=== PATIENT | female | born 1960 | race Caucasian/White ===

== ENCOUNTER 2020-03-27 07:14 | Emergency (ER) | payer OTHER ==
--- NOTE | 2020-03-27 08:09 | ER ---
Nurse's Notes [facility] Name: Joyce Richter Age: 59 yrs Sex: Female : 1960 Arrival Date: 03/27/2020 Time: 07:17 Bed 7 Private MD: Magen Hoffmann B Diagnosis: Low back pain;Essential (primary) hypertension Presentation: 03/27 07:40 Chief complaint: Patient states: Low back pain that has been going on for months. No ss known injury. Pt reports that she had blood work and a urine test but everything came back negative. Coronavirus screen: Client denies travel out of the [place] in the last 14 days. At this time, the client does not indicate any symptoms associated with coronavirus-19. Ebola Screen: Patient denies exposure to infectious person. Patient denies travel to an Ebola-affected area in the 21 days before illness onset. Initial Sepsis Screen: Does the patient meet any 2 criteria? No. Patient's initial sepsis screen is negative. Does the patient have a suspected source of infection? No. Patient's initial sepsis screen is negative. Risk Assessment: Do you want to hurt yourself or someone else? Patient reports no desire to harm self or others. Onset of symptoms is unknown. 07:40 Method Of Arrival: Ambulatory ss 07:40 Acuity: NAOMY 4 ss Historical: - Allergies: 07:43 No Known Allergies; ss - Immunization history:: Adult Immunizations unknown. - Social history:: Smoking status: Patient reports the use of cigarette tobacco products, smokes one-half pack cigarettes per day. Screenin:05 Abuse screen: Denies threats or abuse. Denies injuries from another. Nutritional ph screening: No deficits noted. Tuberculosis screening: No symptoms or risk factors identified. Fall Risk None identified. Assessment: 09:05 General: Appears in no apparent distress. uncomfortable, well groomed, Behavior is ph calm, cooperative, appropriate for age. Pain: Complains of pain in low back area Pain does not radiate. Neuro: Level of Consciousness is awake, alert, obeys commands, Oriented to person, place, time, situation. Cardiovascular: Capillary refill < 3 seconds in bilateral fingers Patient's skin is warm and dry. Respiratory: Airway is patent Respiratory effort is even, unlabored, Respiratory pattern is regular, symmetrical. Derm: Skin is intact, is healthy with good turgor, Skin is pink, warm \T\ dry. Vital Signs: 07:40 BP 162 / 102; Pulse 60; Resp 16; Temp 98.2(O); Pulse Ox 98% on R/A; Weight 86.18 kg; ss Height 5 ft. 6 in. (167.64 cm); Pain 8/10; 09:05 BP 157 / 89; Pulse 62; Resp 18; Temp 98.0; Pulse Ox 99% on R/A; ph 07:40 Body Mass Index 30.67 (86.18 kg, 167.64 cm) ED Course: 07:17 Patient arrived in ED. mr 07:17 Magen Hoffmann MD is Private Physician. mr 07:42 Triage completed. ss 07:43 Arm band placed on right wrist. ss 07:44 Cecile Priest [facility]-C [facility]. snw 07:44 Won Hartmann MD is Attending Physician. snw 08:08 Magen Hoffmann MD is Referral Physician. snw 09:04 Wendy Pierre RN is Primary Nurse. ph 09:05 Patient has correct armband on for positive identification. Bed in low position. Call ph light in reach. Side rails up X 1. Pulse ox on. NIBP on. Door closed. Noise minimized. Warm blanket given. 09:06 No provider procedures requiring assistance completed. Patient did not have IV access ph during this emergency room visit. Administered Medications: 08:45 Drug: Decadron 10 mg Route: IM; Site: left deltoid; ph 09:04 Follow up: Response: No adverse reaction ph 08:45 Drug: Flexeril 10 mg Route: PO; ph 09:04 Follow up: Response: No adverse reaction ph Outcome: 08:09 Discharge ordered by . snw 09:06 Discharged to home ambulatory. ph 09:06 Condition: good 09:06 Discharge instructions given to patient, Instructed on discharge instructions, follow up and referral plans. medication usage, Demonstrated understanding of instructions, follow-up care, medications, Prescriptions given X 3. 09:06 Patient left the ED. ph Signatures: Cecile Priest FNP-C STOVE MECHANIC-Qian Yodit Marinelli Che Pablo, JENI RN Wendy Pierre RN RN ph
--- NOTE | 2020-03-27 08:09 | EDPHYS ---
Physician Documentation [facility] Name: Joyce Richter Age: 59 yrs Sex: Female : 1960 Arrival Date: 03/27/2020 Time: 07:17 Bed 7 Private MD: Magen Hoffmann B ED Physician Won Hartmann HPI: 03/27 08:49 This 59 yrs old Female presents to ER via Ambulatory with complaints of Back snw Pain. 08:49 The patient presents with pain that is acute, with no known mechanism of injury. The snw symptoms are located in the low back. Onset: The symptoms/episode began/occurred 1 month(s) ago, and became worse and became persistent. The pain does not radiate. Associated signs and symptoms: Pertinent positives: none. The problem was sustained from unknown cause. Severity of symptoms: At their worst the symptoms were moderate. The patient has not experienced similar symptoms in the past. Dr. Hoffmann sent pt for urine analysis (normal) and labs. Pt rec'd change in rx for vitamins. Will f/u post acute treatment for current back pain. Historical: - Allergies: 07:43 No Known Allergies; ss - Immunization history:: Adult Immunizations unknown. - Social history:: Smoking status: Patient reports the use of cigarette tobacco products, smokes one-half pack cigarettes per day. ROS: 08:49 Constitutional: Negative for fever, chills, and weight loss, Eyes: Negative for injury, snw pain, redness, and discharge, ENT: Negative for injury, pain, and discharge, Neck: Negative for injury, pain, and swelling, Cardiovascular: Negative for chest pain, palpitations, and edema, Respiratory: Negative for shortness of breath, cough, wheezing, and pleuritic chest pain, Abdomen/GI: Negative for abdominal pain, nausea, vomiting, diarrhea, and constipation, : Negative for injury, bleeding, discharge, and swelling, MS/Extremity: Negative for injury and deformity, Skin: Negative for injury, rash, and discoloration, Neuro: Negative for headache, weakness, numbness, tingling, and seizure, Psych: Negative for depression, anxiety, suicide ideation, homicidal ideation, and hallucinations. 08:49 Back: Positive for pain at rest, pain with movement, of the low back area. Exam: 08:48 Constitutional: This is a well developed, well nourished patient who is awake, alert, snw and in no acute distress. Head/Face: Normocephalic, atraumatic. Eyes: Pupils equal round and reactive to light, extra-ocular motions intact. Lids and lashes normal. Conjunctiva and sclera are non-icteric and not injected. Cornea within normal limits. Periorbital areas with no swelling, redness, or edema. ENT: Nares patent. No nasal discharge, no septal abnormalities noted. Tympanic membranes are normal and external auditory canals are clear. Oropharynx with no redness, swelling, or masses, exudates, or evidence of obstruction, uvula midline. Mucous membranes moist. Neck: Trachea midline, no thyromegaly or masses palpated, and no cervical lymphadenopathy. Supple, full range of motion without nuchal rigidity, or vertebral point tenderness. No Meningismus. Chest/axilla: Normal chest wall appearance and motion. Nontender with no deformity. No lesions are appreciated. Cardiovascular: Regular rate and rhythm with a normal S1 and S2. No gallops, murmurs, or rubs. Normal PMI, no JVD. No pulse deficits. Respiratory: Lungs have equal breath sounds bilaterally, clear to auscultation and percussion. No rales, rhonchi or wheezes noted. No increased work of breathing, no retractions or nasal flaring. Abdomen/GI: Soft, non-tender, with normal bowel sounds. No distension or tympany. No guarding or rebound. No evidence of tenderness throughout. Skin: Warm, dry with normal turgor. Normal color with no rashes, no lesions, and no evidence of cellulitis. MS/ Extremity: Pulses equal, no cyanosis. Neurovascular intact. Full, normal range of motion. Neuro: Awake and alert, GCS 15, oriented to person, place, time, and situation. Cranial nerves II-XII grossly intact. Motor strength 5/5 in all extremities. Sensory grossly intact. Cerebellar exam normal. Normal gait. Psych: Awake, alert, with orientation to person, place and time. Behavior, mood, and affect are within normal limits. 08:48 Back: pain, that is moderate, of the low back area, ROM is painful, normal spinal alignment noted, CVA tenderness, is absent, muscle spasm, is appreciated in the low back area. Vital Signs: 07:40 BP 162 / 102; Pulse 60; Resp 16; Temp 98.2(O); Pulse Ox 98% on R/A; Weight 86.18 kg; ss Height 5 ft. 6 in. (167.64 cm); Pain 8/10; 09:05 BP 157 / 89; Pulse 62; Resp 18; Temp 98.0; Pulse Ox 99% on R/A; ph 07:40 Body Mass Index 30.67 (86.18 kg, 167.64 cm) ss MDM: 07:44 Patient medically screened. snw 08:51 Data reviewed: vital signs, nurses notes. Data interpreted: Pulse oximetry: on room air snw is 98 %. Interpretation: normal. Counseling: I had a detailed discussion with the patient and/or guardian regarding: the historical points, exam findings, and any diagnostic results supporting the discharge/admit diagnosis, the presence of at least one elevated blood pressure reading (>120/80) during this emergency department visit, the need for outpatient follow up, to return to the emergency department if symptoms worsen or persist or if there are any questions or concerns that arise at home. Special discussion: Based on the history and exam findings, there is no indication for further emergent testing or inpatient evaluation. I discussed with the patient/guardian the need to see the primary care provider for further evaluation of the symptoms. Administered Medications: 08:45 Drug: Decadron 10 mg Route: IM; Site: left deltoid; ph 09:04 Follow up: Response: No adverse reaction ph 08:45 Drug: Flexeril 10 mg Route: PO; ph 09:04 Follow up: Response: No adverse reaction ph Disposition: 19:54 Co-signature as Attending Physician, Won Hartmann MD I agree with the assessment and tw4 plan of care. Disposition: 03/27/20 08:09 Discharged to Home. Impression: Low back pain, Essential (primary) hypertension. - Condition is Stable. - Discharge Instructions: Back Pain, Adult, Hypertension, Musculoskeletal Pain, Back Injury Prevention, [id number], Cryotherapy, DASH Eating Plan, Rehydration, Adult, Heat Therapy. - Prescriptions for Ultram 50 mg Oral Tablet - take 1 tablet by ORAL route every 6 hours As needed; 12 tablet. Prednisone 20 mg Oral Tablet - take 2 tablet by ORAL route once daily for 5 days; 10 tablet. orphenadrine citrate 100 mg Oral Tablet Sustained Release - take 1 tablet by ORAL route 2 times per day As needed; 20 tablet. - Work release form, Medication Reconciliation Form, Thank You Letter, Antibiotic Education, Prescription Opioid Use form. - Follow up: Magen Hoffmann MD; When: 1 week; Reason: Recheck today's complaints, Continuance of care, Re-evaluation by your physician. Follow up: Emergency Department; When: As needed; Reason: Worsening of condition. Signatures: Cecile Priest, MANDY-C VEGETABLE GROWER-Csnw Che Franklin RN RN Wendy Pierre RN RN Won Hartmann MD MD tw4 Corrections: (The following items were deleted from the chart) 08:39 08:09 03/27/2020 08:09 Discharged to Home. Impression: Low back pain; Essential snw (primary) hypertension. Condition is Stable. Forms are Medication Reconciliation Form, Thank You Letter, Antibiotic Education, Prescription Opioid Use. Follow up: Magen Hoffmann; When: 1 week; Reason: Recheck today's complaints, Continuance of care, Re-evaluation by your physician. Follow up: Emergency Department; When: As needed; Reason: Worsening of condition. snw
[2020-03-27] MEDS ORDERED: dexAMETHasone 10 MG/ML VIAL ONE (08:53)
[2020-03-27] MEDS ORDERED: CYCLOBENZAPRINE 10 MG TAB ONE (08:53)
[2020-03-31 11:19] VITALS: BP 157/89; TEMP 98; O2SAT 99
== END 2020-03-27 09:06 | disposition home or self-care (01) ==
LOC: ER 07:14
DX: M54.5 Low back pain (principal); I10 Essential (primary) hypertension; F17.210 Nicotine dependence, cigarettes, uncomplicated
CPT/HCPCS: 96372; 99283; J1100

== ENCOUNTER 2021-10-17 19:11 | Emergency (ER) | payer BC ==
--- OUTSIDE RECORDS SUMMARY | 2021-10-17 19:14 | XMS REPORT | Continuity of Care Document ---
:1960 Author Organization [facility] t Address [address] [place] [address] Care Team Providers Name Role Phone Chris Hoffmann Primary Care Physician Elizabet NGO, T Attending Clinician Unavailable Only, Db Test Attending Clinician Unavailable Blaze PRINCE Attending Clinician BLAZE Attending Clinician Unavailable Doctor Unassigned, Name Attending Clinician Unavailable Lab, Fam Pob I Attending Clinician Unavailable Sarahi SOCIAL WORK PROGRAM COORDINATOR Attending Clinician SARAHI Attending Clinician Unavailable Payers Payer Name Policy Type Policy Number Effective Date Expiration Date S ource [employer] CHOICE POS [id number] 2020 00:00:00 II Problems This patient has no known problems. Allergies, Adverse Reactions, Alerts Allergy Allergy Status Severity Reaction(s) Onset Inactive Treating Comm ents Source Name Type Date Date Clinician NO KNOWN Drug Active [facility] ALLERGIE Class [facility] Social History Social Habit Start Date Stop Date Quantity Comments Source Exposure to Yes [facility] SARS-CoV-2 (event) Medica l Branch Sex Assigned At [birth year] [facility] 00:00:00 00:00:00 Medical Branch Smoking Status Start Date Stop Date Source Unknown if ever smoked [facility] Medications Ordered Filled Start Stop Current Ordering Indication Dosage Frequency Signature Comments Components Source Medication Medication Date Date Medication? Clinician (SIG) Name Name No known No [facility] medications [facility] No known No [facility] medications [facility] No known No Univers medications [facility] Immunizations Ordered Filled Immunization Date Status Comments Sourc e Immunization Name Name SARS-COV-2 COVID-19 2020-11-17 Completed Unive rsity of PFIZER VACCINE 00:00:00 [facility] SARS-COV-2 COVID-19 2020-11-17 Completed Unive rsity of PFIZER VACCINE 00:00:00 [facility] SARS-COV-2 COVID-19 2020-11-17 Completed Unive rsity of PFIZER VACCINE 00:00:00 [facility] SARS-COV-2 COVID-19 2020-11-17 Completed Unive rsity of PFIZER VACCINE 00:00:00 [facility] SARS-COV-2 COVID-19 2020-11-17 Completed Unive rsity of PFIZER VACCINE 00:00:00 [facility] SARS-COV-2 COVID-19 2020-10-28 Completed Unive rsity of PFIZER VACCINE 00:00:00 [facility] SARS-COV-2 COVID-19 2020-10-28 Completed Unive rsity of PFIZER VACCINE 00:00:00 [facility] SARS-COV-2 COVID-19 2020-10-28 Completed Unive rsity of PFIZER VACCINE 00:00:00 [facility] SARS-COV-2 COVID-19 2020-10-28 Completed Unive rsity of PFIZER VACCINE 00:00:00 [facility] SARS-COV-2 COVID-19 2020-10-28 Completed Unive rsity of PFIZER VACCINE 00:00:00 [facility] Procedures Procedure Date / Time Performed Performing Clinician [facility] e ASSIGNMENT OF BENEFITS 2021-03-26 22:57:05 Doctor Unassigned, No [facility] Name Medical Branch Encounters Start End Encounter Admission Attending Care Care Encounter Source Date/Time Date/Time Type Type Clinicians Facility Department ID 2021-03-28 2021-03-28 Letter GRZEGORZ Mcneal [id number] Univers 00:00:00 00:00:00 (Out) Marielle TRAN [id number] [facility] [id number] Rainer as [phone] [address] 2021-03-26 2021-03-26 Laboratory Only, Ang Db Test [facility] 1.2.8 [id number] [id number] Univers 17:56:55 18:16:55 Only Song, [facility] [id number] ity of [place] [id number] Rainer as Abdoulaye?Blea [phone] Nh demarcusradu abbasi [address] [facility] 2021-03-26 2021-03-26 Outpatient [facility] [id number] Univers 18:00:00 18:00:00 [id number] ity of [facility] 2021-03-26 2021-03-[address] [facility] [id number] Univers 18:00:00 18:00:00 MANDI ity [facility] 2021-03-26 2021-03-26 Orders Doctor GRZEGORZ [id number] Univers 00:00:00 00:00:00 Only Unassigned, MARC [id number] [facility] [id number] Rainer as [phone] [address] 2020-11-18 2020-11-18 Outpatient [facility] [id number] Univers 13:30:00 13:30:00 ity of [facility] 2020-11-17 2020-11-17 Outpatient [facility] [id number] Univers 13:30:00 13:30:00 ity [facility] 2020-10-28 2020-10-28 Outpatient [facility] [id number] Univers 13:35:00 13:35:00 ity [facility] 2020-08-08 2020-08-08 Laboratory Lab, Adc Fam Pob I [facility] 1.2. [id number] Univers 17:07:32 17:27:32 Only Sarahi Nuevolution [id number] ity of [place] [id number] Rainer as Professio [phone] Nh jonathan ryley [address] [place] [facility] 2020-08-08 2020-08-[address] [facility] [id number] Univers 17:00:00 17:00:00 [facility]-08 2020-08-08 Letter Doctor GRZEGORZ [id number] Univers 00:00:00 00:00:00 (Out) Unassigned, MARC [id number] [facility] [id number] Rainer as [phone] [place] [address] Branch 2020-08-08 2020-08-08 Letter Doctor GRZEGORZ [id number] Univers 00:00:00 00:00:00 (Out) Unassigned, MARC [id number] [facility] [id number] Rainer as [phone] [place] [address] Branch Results This patient has no known results.
[2021-10-17] MEDS ORDERED: METHYLPREDNISOLONE 125 MG INJ ONE (21:14)
[2021-10-17] MEDS ORDERED: KETOROLAC 30 MG/ML INJ ONE (21:15)
[2021-10-17] MEDS ORDERED: HYDROCODONE/APAP 10/325 TAB ONE (21:15)
[2021-10-17] MEDS ORDERED: METHOCARBAMOL 1,000 MG/10 ML VIAL IV ONE (21:15)
[2021-10-17] MEDS ORDERED: NA CHLORIDE 0.9% 50 ML ONE (21:16)
[2021-10-17 21:22] LABS: Absolute Lymphocytes (CBC) 2.2 K/uL (0.7-4.9); Hematocrit 39.7 % (36.0-45.0); Lymphocytes % 31.9 % (15.3-44.8); MPV 7.9 fL (7.6-11.3); RBC Red Blood Cell Count 4.34 M/uL (3.86-4.86)
[2021-10-17 21:29] LABS: Albumin 4.1 g/dL (3.4-5.0); BUN Blood Urea Nitrogen 17 mg/dL (7-18); Bicarbonate 28 mmol/L (21-32); Glucose Level 118 mg/dL (74-106); Potassium 4.1 mmol/L (3.5-5.1); Sodium Level 140 mmol/L (136-145)
[2021-10-17 21:34] LABS: ALT/SGPT 27 U/L (12-78); Alkaline Phosphatase 88 U/L (45-117); Bilirubin Total 0.5 mg/dL (0.2-1.0); Protein, Total 7.2 g/dL (6.4-8.2)
--- NOTE | 2021-10-17 21:40 | RAD REPORT ---
EXAM DESCRIPTION: CT - Spine Lumbar Wo Con - 10/17/2021 9:17 pm CLINICAL HISTORY: PAIN, left lower leg radiculopathy COMPARISON: None. TECHNIQUE: Thin section axial imaging of the lumbar spine was performed. Sagittal and coronal recon struction images were generated and reviewed. All CT scans are performed using dose optimization technique as appropriate and may include automated exposure control or mA/KV adjustment according to patient size. FINDINGS: Lumbar bodies are normal in height and alignment. No acute fracture change. No lytic, scle rotic or expansile bony destructive process seen. No paraspinal mass identifiable. T12-L1, L1-2 and L2-3 disc levels show no significant findings. L3-4 shows mild circumferential disc bulge. Facet joint degenerative changes are present. No central spinal stenosis or significant foraminal encroachment. L4-5 level shows more prominent circumferential disc bulge with more pronounced facet joint degenerat dilip change. Central canal is borderline stenotic at 10 mm. Foraminal disc bulge changes cause left gr eater than right foraminal stenosis. L5-S1 disc level shows disc bulge. No central spinal stenosis. No significant degree of foraminal marcus nosis seen. Facet joint degenerative changes are present. IMPRESSION: No disc herniation or central spinal stenosis. No acute vertebral body finding. L4-5 disc bulge changes are present with borderline central spinal stenosis. Left greater than right foraminal mild stenosis noted.
[2021-10-17 21:41] LABS: AST/SGOT 17 U/L (15-37)
--- NOTE | 2021-10-18 02:01 | EDPHYS ---
Physician Documentation [facility] Name: Joyce Richter Age: 61 yrs Sex: Female : 1960 Arrival Date: 10/17/2021 Time: 19:13 Bed 16 Private MD: ED Physician Santi Joyce HPI: 10/18 07:16 This 61 yrs old Female presents to ER via Wheelchair with complaints of Leg Pain. kdr 07:16 The patient presents with pain, that is acute. The complaints affect the lateral aspect kdr of left knee, lateral aspect of left calf and posterior aspect of left knee. Context: The problem was sustained at home, resulted from an unknown cause, the patient can partially bear weight, the patient is able to ambulate, with mild difficulty, Problem is a result from a previous injury: No. Onset: The symptoms/episode began/occurred suddenly, 5 day(s) ago. Modifying factors: The symptoms are alleviated by nothing. the symptoms are aggravated by nothing. Associated signs and symptoms: The patient has no apparent associated signs or symptoms. Treatment prior to arrival includes: no previous treatment. Severity of symptoms: At their worst the symptoms were moderate, severe, just prior to arrival, in the emergency department the symptoms have resolved. The patient has not experienced similar symptoms in the past. Patient was seen at Dr. Hoffmann's office and was scheduled for an ultrasound of the leg. Patient reports that that study was negative for any blood clot. Historical: - Allergies: 10/17 19:45 No Known Allergies; vc1 - PMHx: 19:45 Hypertensive disorder; High Cholesterol; vc1 - PSHx: 19:45 None; vc1 - Immunization history:: Adult Immunizations up to date, Client reports receiving the 2nd dose of the Covid vaccine, Flu vaccine is up to date. - Social history:: Smoking status: Patient reports the use of cigarette tobacco products, smokes one-half pack cigarettes per day. ROS: 10/18 07:16 Constitutional: Negative for fever, chills, and weight loss, Eyes: Negative for injury, kdr pain, redness, and discharge, Neck: Negative for injury, pain, and swelling, Cardiovascular: Negative for chest pain, palpitations, and edema, Respiratory: Negative for shortness of breath, cough, wheezing, and pleuritic chest pain, Abdomen/GI: Negative for abdominal pain, nausea, vomiting, diarrhea, and constipation, Back: Negative for injury and pain, : Negative for injury, bleeding, discharge, and swelling, Skin: Negative for injury, rash, and discoloration, Neuro: Negative for headache, weakness, numbness, tingling, and seizure activity. Psych: Negative for depression, anxiety, suicide ideation, homicidal ideation, and hallucinations, Allergy/Immunology: Negative for hives, rash, and allergies. MS/extremity: Positive for pain, tenderness, of the lateral aspect of left thigh, lateral aspect of left knee, lateral aspect of left calf, left hamstring, posterior aspect of left knee and left calf. Exam: 07:16 Constitutional: This is a well developed, well nourished patient who is awake, alert, kdr and in no acute distress. Head/Face: Normocephalic, atraumatic. Eyes: Pupils equal round and reactive to light, extra-ocular motions intact. Lids and lashes normal. Conjunctiva and sclera are non-icteric and not injected. Cornea within normal limits. Periorbital areas with no swelling, redness, or edema. Neck: Trachea midline, no thyromegaly or masses palpated, and no cervical lymphadenopathy. Supple, full range of motion without nuchal rigidity, or vertebral point tenderness. No Meningismus. Chest/axilla: Normal chest wall appearance and motion. Nontender with no deformity. No lesions are appreciated. Cardiovascular: Regular rate and rhythm with a normal S1 and S2. No gallops, murmurs, or rubs. Normal PMI, no JVD. No pulse deficits. Respiratory: Lungs have equal breath sounds bilaterally, clear to auscultation and percussion. No rales, rhonchi or wheezes noted. No increased work of breathing, no retractions or nasal flaring. Abdomen/GI: Soft, non-tender, with normal bowel sounds. No distension or tympany. No guarding or rebound. No evidence of tenderness throughout. Back: No spinal tenderness. No costovertebral tenderness. Full range of motion. Skin: Warm, dry with normal turgor. Normal color with no rashes, no lesions, and no evidence of cellulitis. MS/ Extremity: Pulses equal, no cyanosis. Neurovascular intact. Full, normal range of motion. Neuro: Awake and alert, GCS 15, oriented to person, place, time, and situation. Cranial nerves II-XII grossly intact. Motor strength 5/5 in all extremities. Sensory grossly intact. Cerebellar exam normal. Normal gait. Psych: Awake, alert, with orientation to person, place and time. Behavior, mood, and affect are within normal limits. Vital Signs: 10/17 19:39 BP 129 / 91; Pulse 69; Resp 18; Temp 98.2; Pulse Ox 97% on R/A; Weight 83.91 kg; Height vc1 5 ft. 6 in. (167.64 cm); Pain 10/10; 20:01 BP 121 / 76 LA Supine (auto/reg); Pulse 74 MON; Resp 18 S; Temp 98.2; Pulse Ox 98% on tk1 R/A; Pain 10/10; 21:00 BP 122 / 88 LA Supine (auto/reg); Pulse 67 MON; Resp 18 S; Pulse Ox 99% ; tk1 22:00 BP 122 / 80 LA Supine (auto/reg); Pulse 62 MON; Resp 18 S; Pulse Ox 100% on R/A; tk1 22:30 Pain 6/10; tk1 23:00 BP 138 / 82; Pulse 60; Resp 18; Pulse Ox 99% on R/A; tk1 19:39 Body Mass Index 29.86 (83.91 kg, 167.64 cm) vc1 MDM: 10/18 02:01 Patient medically screened. kdr 02:05 Data reviewed: vital signs, nurses notes. ED course: Patient states that she had kdr minimal relief in the ED From the medications given. I reviewed the results of her blood work and radiology studies done with her in detail. The patient was upset over the delay in her care. I apologized and indicated that the ED had been experiencing a heavy flow and with critical patients. Nonetheless she remained frustrated that she had been here for nearly 7 hours without significant relief in her pain. To provide her with additional medication for her pain and suggested that she would next needed an MRI of her spine. That barring an exacerbation of her current symptoms, she could follow-up with Dr. Hoffmann to coordinate the additional evaluations and studies needed. He was discharged in stable condition but unhappy with the care provided.. 10/17 20:48 Order name: CBC with Diff; Complete Time: 22:45 kdr 10/17 20:48 Order name: CMP; Complete Time: 22:45 kdr 10/17 20:45 Order name: CT Lumbar Spine Wo Con; Complete Time: 22:45 kdr Administered Medications: 10/17 21:10 Drug: SOLU-Medrol (methylPrednisoLONE) 125 mg Route: IVP; Rate: 75 mg/min; Infused tk1 Over: 2 mins; Site: right hand; 22:44 Follow up: Response: No adverse reaction tk1 21:15 Drug: Ketorolac 15 mg Route: IVP; Rate: 7.5 mg/min; Infused Over: 2 mins; Site: right tk1 hand; 22:43 Follow up: Response: Pain is decreased tk1 21:20 Dru grams of (Robaxin (methocarbamol) 1 grams, NS 0.9% 50 ml) Route: IVPB; Rate: 50 tk1 ml/hr; Infused Over: 1 hrs; Site: right hand; Delivery: Primary tubing; 22:43 Follow up: Response: No adverse reaction; Pain is decreased; IV Status: Completed tk1 infusion; IV Intake: 50ml 21:31 Drug: [place] (HYDROcodone-acetaminophen) 10 mg-325 mg 1 tabs Route: PO; tk1 22:30 Follow up: Pain 6/10 Adult; Response: Pain is decreased tk1 10/18 02:10 Not Given (Patient Refused): Neurontin (gabapentin) 300 mg PO once ll3 Disposition Summary: 10/18/21 02:01 Discharge Ordered Location: Home kdr Problem: an ongoing problem kdr Symptoms: are unchanged kdr Condition: Stable kdr Diagnosis - Pain in left leg kdr Followup: kdr - With: Private Physician - When: 2 - 3 days - Reason: If symptoms return, Further diagnostic work-up, Recheck today's complaints, Continuance of care, Re-evaluation by your physician Discharge Instructions: - Discharge Summary Sheet kdr - Musculoskeletal Pain kdr - Pain Without a Known Cause kdr - Heat Therapy, [id number] kdr - Sciatica, [id number] kdr Forms: - Medication Reconciliation Form kdr - Thank You Letter kdr - Work release form ll3 Prescriptions: - Ibuprofen 800 mg Oral Tablet - take 1 tablet by ORAL route every 8 hours As needed take with food; 20 tablet; kdr Refills: 0, Product Selection Permitted - Neurontin 300 mg Oral Capsule - take 1 capsule by ORAL route every 8 hours; 16 capsule; Refills: 0, Product kdr Selection Permitted - Medrol ([place]) 4 mg Oral Tablets, Dose Pack - take 1 tablet by ORAL route as directed - follow package instructions; 1 kdr packet; Refills: 0, Product Selection Permitted Signatures: Dispatcher [employer] Santi Pacheco MD MD kdr Sherley Carpenter tk1 Zeenat Davison RN RN vc1 Dejah Johnson RN ll3 Corrections: (The following items were deleted from the chart) 02:14 10/17 20:45 Urine Dipstick-Ancillary ordered. kdr ll3
--- NOTE | 2021-10-18 02:01 | ER ---
Nurse's Notes [facility] Name: Joyce Richter Age: 61 yrs Sex: Female : 1960 Arrival Date: 10/17/2021 Time: 19:13 Bed 16 Private MD: Diagnosis: Pain in left leg Presentation: 10/17 19:39 Chief complaint: Patient states: "I have been having this pain in my left leg for about vc1 5 days. I went to Dr. Hoffmann yesterday and he sent my over here to get a scan of my leg to see if there were any blood clots and there wasn't. He said it was probably just a sprain. He wrote me a prescription for tramadol but I haven;t taken it yet.". Coronavirus screen: Vaccine status: Patient reports receiving the 2nd dose of the covid vaccine. Booster, [employer] At this time, the client does not indicate any symptoms associated with coronavirus-19. Ebola Screen: No symptoms or risks identified at this time. Initial Sepsis Screen: Does the patient meet any 2 criteria? No. Patient's initial sepsis screen is negative. Does the patient have a suspected source of infection? No. Patient's initial sepsis screen is negative. Risk Assessment: Do you want to hurt yourself or someone else? Patient reports no desire to harm self or others. Onset of symptoms is unknown. 19:39 Method Of Arrival: Wheelchair vc1 19:39 Acuity: NAOMY 3 vc1 Triage Assessment: 19:45 General: Appears in no apparent distress. uncomfortable, Behavior is calm, cooperative, vc1 appropriate for age. Pain: Complains of pain in left leg Pain currently is 10 out of 10 on a pain scale. Quality of pain is described as burning, sharp, Pain began gradually, 2-3 days ago. Aggravated by increased activity, repositioning, weight bearing. Historical: - Allergies: 19:45 No Known Allergies; vc1 - PMHx: 19:45 Hypertensive disorder; High Cholesterol; vc1 - PSHx: 19:45 None; vc1 - Immunization history:: Adult Immunizations up to date, Client reports receiving the 2nd dose of the Covid vaccine, Flu vaccine is up to date. - Social history:: Smoking status: Patient reports the use of cigarette tobacco products, smokes one-half pack cigarettes per day. Screenin:01 Abuse screen: Denies threats or abuse. Denies injuries from another. Nutritional tk1 screening: No deficits noted. Tuberculosis screening: No symptoms or risk factors identified. Fall Risk None identified. Assessment: 19:56 General: Appears distressed, uncomfortable, obese, well groomed, well developed, well tk1 nourished, Behavior is calm, cooperative, appropriate for age. Pain: Complains of pain in left leg Pain does not radiate. Pain currently is 10 out of 10 on a pain scale. Quality of pain is described as sharp, Pain began 2-3 days ago. Neuro: Level of Consciousness is awake, alert, obeys commands, Oriented to person, place, time, [employer] are equal bilaterally Moves all extremities. Gait is steady, Speech is normal. Cardiovascular: Capillary refill < 3 seconds is brisk in bilateral fingers toes Clubbing of nail beds is absent. Respiratory: Airway is patent Respiratory effort is even, unlabored, Respiratory pattern is regular, symmetrical. GI: No deficits noted. No signs and/or symptoms were reported involving the gastrointestinal system. : No deficits noted. No signs and/or symptoms were reported regarding the genitourinary system. EENT: No deficits noted. No signs and/or symptoms were reported regarding the EENT system. Derm: No deficits noted. No signs and/or symptoms reported regarding the dermatologic system. Musculoskeletal: No deficits noted. Reports pain in right leg cramping in right leg at present. Subside while nurse in room. 21:00 Reassessment: No changes from previously documented assessment. Patient and/or family tk1 updated on plan of care and expected duration. Pain level reassessed. Patient is alert, oriented x 3, equal unlabored respirations, skin warm/dry/pink. Pain: Pain currently is 8 out of 10 on a pain scale. 23:00 Reassessment: Patient and/or family updated on plan of care and expected duration. Pain tk1 level reassessed. Patient is alert, oriented x 3, equal unlabored respirations, skin warm/dry/pink. Pain: Complains of pain in left leg Pain currently is 6 out of 10 on a pain scale. 10/18 01:00 Reassessment: Patient to door requesting update on process. Explained to patient tk1 pending diagnostics. Verbalized understanding. States, pain to left leg 7/10. Improved, but still hurts. Dr. Joyce updated. 02:00 Reassessment: D/C per MD order. Discharge/Prescription instructions given to patient tk1 and . Verbalized understanding. Vital Signs: 10/17 19:39 BP 129 / 91; Pulse 69; Resp 18; Temp 98.2; Pulse Ox 97% on R/A; Weight 83.91 kg; Height vc1 5 ft. 6 in. (167.64 cm); Pain 10/10; 20:01 BP 121 / 76 LA Supine (auto/reg); Pulse 74 MON; Resp 18 S; Temp 98.2; Pulse Ox 98% on tk1 R/A; Pain 10/10; 21:00 BP 122 / 88 LA Supine (auto/reg); Pulse 67 MON; Resp 18 S; Pulse Ox 99% ; tk1 22:00 BP 122 / 80 LA Supine (auto/reg); Pulse 62 MON; Resp 18 S; Pulse Ox 100% on R/A; tk1 22:30 Pain 6/10; tk1 23:00 BP 138 / 82; Pulse 60; Resp 18; Pulse Ox 99% on R/A; tk1 19:39 Body Mass Index 29.86 (83.91 kg, 167.64 cm) vc1 ED Course: 19:13 Patient arrived in ED. ds1 19:45 Triage completed. vc1 19:45 Arm band placed on left wrist. vc1 19:52 Sherley Carpenter is Primary Nurse. tk1 20:01 Patient has correct armband on for positive identification. Bed in low position. Call tk1 light in reach. Side rails up X 1. Pulse ox on. NIBP on. Head of bed elevated. 20:01 No provider procedures requiring assistance completed. tk1 20:08 Santi Joyce MD is Attending Physician. kdr 21:06 Inserted saline lock: 20 gauge in right hand, using aseptic technique. Blood collected. tk1 21:17 CT Lumbar Spine Wo Con In Process Unspecified. EDMS 10/18 02:16 IV discontinued, intact, bleeding controlled, No redness/swelling at site. Pressure ll3 dressing applied. Administered Medications: 10/17 21:10 Drug: SOLU-Medrol (methylPrednisoLONE) 125 mg Route: IVP; Rate: 75 mg/min; Infused tk1 Over: 2 mins; Site: right hand; 22:44 Follow up: Response: No adverse reaction tk1 21:15 Drug: Ketorolac 15 mg Route: IVP; Rate: 7.5 mg/min; Infused Over: 2 mins; Site: right tk1 hand; 22:43 Follow up: Response: Pain is decreased tk1 21:20 Dru grams of (Robaxin (methocarbamol) 1 grams, NS 0.9% 50 ml) Route: IVPB; Rate: 50 tk1 ml/hr; Infused Over: 1 hrs; Site: right hand; Delivery: Primary tubing; 22:43 Follow up: Response: No adverse reaction; Pain is decreased; IV Status: Completed tk1 infusion; IV Intake: 50ml 21:31 Drug: [place] (HYDROcodone-acetaminophen) 10 mg-325 mg 1 tabs Route: PO; tk1 22:30 Follow up: Pain 6/10 Adult; Response: Pain is decreased tk1 10/18 02:10 Not Given (Patient Refused): Neurontin (gabapentin) 300 mg PO once ll3 Intake: 10/17 22:43 IV: 50ml; Total: 50ml. tk1 Outcome: 10/18 02:01 Discharge ordered by . kdr 02:16 Discharged to home ambulatory, with family. ll3 02:16 Condition: stable 02:16 Discharge instructions given to patient, Instructed on discharge instructions, follow up and referral plans. medication usage, Demonstrated understanding of instructions, follow-up care, medications, Prescriptions given X 3. 02:18 Patient left the ED. ll3 Signatures: Dispatcher [employer] EDMS Santi Joyce MD MD [facility] Diamond Bergman ds1 Dejah Johnson RN RN ll3 Sherley Carpenter tk1 Zeenat Davison RN RN vc1 Corrections: (The following items were deleted from the chart) 02:19 10/17 21:00 Reassessment: Patient and/or family updated on plan of care and expected tk1 duration. Pain level reassessed. Patient is alert, oriented x 3, equal unlabored respirations, skin warm/dry/pink. tk1 10/18 02:19 10/17 21:00 Pain: Complains of pain in left leg Pain currently is 6 out of 10 on a pain tk1 scale. tk1 10/18 02:23 10/17 23:00 BP 138 / 101; Pulse 60bpm; Resp 18bpm; Pulse Ox 99% RA; ll3 tk1
[2021-10-18 05:06] VITALS: TEMP 98.2
[2021-10-18 05:18] VITALS: BP 138/101; O2SAT 99
== END 2021-10-18 02:18 | disposition home or self-care (01) ==
LOC: ER 19:11
DX: M79.605 Pain in left leg (principal); I10 Essential (primary) hypertension; F17.210 Nicotine dependence, cigarettes, uncomplicated
CPT/HCPCS: 96365; 85025; 36415; 80053; 72131; 96375; 99284; J2930; J2800